=== PATIENT | male | born 1970 | race Caucasian/White ===

== ENCOUNTER 2021-10-02 16:56 | Emergency (ER) | payer MEDICARE, OTHER ==
[~2021-10-02 16:56] MED LIST: CEPHALEXIN500 MG PO; HYDROCODON-ACE1 EAC4 PO
[2021-10-02 20:27] LABS: RED BLOOD COUNT 5.08 M/UL (4.20-5.50); WHITE BLOOD COUNT 12.6 K/UL (4.5-11.0)
[2021-10-02 20:47] LABS: BUN/CREATININE RATIO 24 (0-10)
[2021-10-02] MEDS ORDERED: LEVOFLOXACIN500 MG PO (21:56)
== END 2021-10-02 22:52 | disposition home or self-care (01) ==
LOC: ER1 16:56
PROVIDERS: Emergency Medicine
DX: N43.3 Hydrocele, unspecified (principal)
CPT/HCPCS: 76870; 80053; 81001; 85025; 96372; 99284; J0696